=== PATIENT | female | born 1940 | race Caucasian/White ===

== ENCOUNTER 2021-07-21 13:10 | Outpatient (CLI) | payer MEDICARE, MEDICAID, SELFPAY | END 2021-07-21 13:11 | disposition home or self-care (01) | LOC: ANHAUDIO 13:14 | DX: Z01.10 Encounter for examination of ears and hearing without abnormal findings (principal); H90.3 Sensorineural hearing loss, bilateral | CPT/HCPCS: 92557; 92567 ==

== ENCOUNTER 2021-09-04 13:08 | Outpatient (RCR) | payer MEDICARE, MEDICAID, SELFPAY | END 2021-09-04 23:59 | disposition home or self-care (01) | LOC: ANHAUDIO 13:08 | DX: Z46.1 Encounter for fitting and adjustment of hearing aid (principal) | CPT/HCPCS: V5160; V5260 ==